=== PATIENT | male | born 1990 | race Caucasian/White ===

== ENCOUNTER 2019-02-23 12:25 | Emergency (ER) | payer MEDICAID ==
[~2019-02-23] VITALS: Ht 172.7 cm; Wt 81.5 kg
[2019-02-23 13:01] VITALS: BP 127/78; PULSE 60; RESP 18; Ht 172.7 cm; Wt 81.5 kg
[2019-02-23] MEDS ORDERED: METH750T93 PO (14:03)
[2019-02-23] MEDS ORDERED: ACET-141 PO (14:03)
[2019-02-23] MEDS ORDERED: IBUP-1542 PO (14:03)
--- NOTE | 2019-02-23 14:09 | ERD ---
ER Documentation Chief Complaint Chief Complaint right lower back pain radiating to right leg HPI 28-year-old male no significant past medical history presents for right lower back pain with radiation to the right leg x4 days. States that he has 7 out of 10 pain. 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 Pain is in the low back noted on the right side. No heavy lifting noted. Patient does not know how his pain was brought on. No prior similar symptoms. Denies any fevers or chills.. Denies chest pain or shortness of breath. No treatment tried at home. No other modifying factors noted. ROS All systems reviewed and are negative except as per history of present illness. Medications Home Meds Active Scripts Methocarbamol* (Robaxin*) 750 Mg Tablet, 750 MG PO TID PRN for MUSCLE SPASMS, #30 TAB Prov:BLANCHE BROWN 02/23/19 Ibuprofen* (Motrin*) 600 Mg Tab, 600 MG PO Q6H PRN for PAIN, #30 TAB Prov:BLANCHE BROWN DO 02/23/19 Acetaminophen* (Acetaminophen*) 500 MG Extra Strength Tablet, 500 MG PO Q4H PRN for PAIN AND OR ELEVATED TEMP, #30 TAB Prov:BLANCHE BROWN 02/23/19 Allergies Allergies: Coded Allergies: No Known Allergy (Unverified , 02/23/19) PMhx/Soc Medical and Surgical Hx: pt denies Medical Hx, pt denies Surgical Hx History of Surgery: No Hx Alcohol Use: No Hx Substance Use: No Hx Tobacco Use: No FmHx Family History: No coronary disease Physical Exam Vitals Vital Signs Date Temp Pulse Resp B/P (MAP) Pulse Ox O2 O2 Flow FiO2 Time Delivery Rate 02/23/19 98.3 60 18 127/78 97 13:01 (94) Physical Exam Const: No acute distress Neck: Full range of motion. No meningismus. no midline tenderness Resp: Clear to auscultation bilaterally Cardio: Regular rate and rhythm, no murmurs, bilateral radial and dorsalis pedis pulses intact and equal Abd: Soft, non tender, non distended. Normal bowel sounds, no abdominal bruit noted Skin: No petechiae or rashes Back: no point tenderness, right paravertebral muscle tenderness palpation of the lumbar spine Ext: No cyanosis, or edema, 5/5 muscle strength bilateral upper and lower extremities Neur: Awake and alert, bilateral upper and lower extremity sensation intact Psych: Normal Mood and Affect Procedures/MDM Medical Decision Making: Differential diagnosis includes but not limited to muscle strain, ligamentous sprain, epidural abscess, osteomyelitis, osteoarthritis, herniated disc, compression fracture, aortic aneurysm, kidney stone, pyelonephritis, pancreatitis. Patient appeared well on physical examination. Nontoxic appearing. Patient appeared well on physical examination. Nontoxic appearing. No recent back procedure, therefore low suspicion for epidural abscess No recent infection, therefore low suspicion for osteomyelitis No trauma, therefore low suspicion for fracture No chest pain, abdominal pain and no pulse deficits noted, therefore low suspicion for aortic dissection or pancreatitis No flank pain or fever to suggest pyelonephritis or kidney stone Patient possibly has muscle strain Patient was neurovascularly intact on physical examination ED course: Prescription(s): Patient given prescription for supportive medication(s). Patient advised to follow up with PCP in 1-2 days. Patient advised to return to ED for new or worsening symptoms. Patient stable on discharge from the ED. Disclaimer: Inadvertent spelling and grammatical errors are likely due to EHR/dictation software use and do not reflect on the overall quality of patient care. Also, please note that the electronic time recorded on this note does not necessarily reflect the actual time of the patient encounter. Departure Diagnosis: Primary Impression: Low back pain Chronicity: unspecified Back pain laterality: unspecified Sciatica presence: with sciatica Sciatica laterality: sciatica of right side Qualified Codes: M54.41 - Lumbago with sciatica, right side Condition: Fair Patient Instructions: Back Care Tips Referrals: [facility] YOU HAVE RECEIVED A MEDICAL SCREENING EXAM AND THE RESULTS INDICATE THAT YOU DO NOT HAVE A CONDITION THAT REQUIRES URGENT TREATMENT IN THE EMERGENCY DEPARTMENT. FURTHER EVALUATION AND TREATMENT OF YOUR CONDITION CAN WAIT UNTIL YOU ARE SEEN IN YOUR DOCTORS OFFICE WITHIN THE NEXT 1-2 DAYS. IT IS YOUR RESPONSIBILITY TO MAKE AN APPOINTMENT FOR FOLOW-UP CARE. IF YOU HAVE A PRIMARY DOCTOR --you should call your primary doctor and schedule an appointment IF YOU DO NOT HAVE A PRIMARY DOCTOR YOU CAN CALL OUR PHYSICIAN REFERRAL HOTLINE AT IF YOU CAN NOT AFFORD TO SEE A PHYSICIAN YOU CAN CHOSE FROM THE FOLLOWING [facility] [address] [facility] [address] [facility] [address] [facility] [address] [facility] [facility] [facility] [address] [facility]. [facility] [address] [facility]. [employer] Additional Instructions: Llame al doctor MAANA y john monico HUBER PARA DENTRO DE 1-2 SORTO.Dgale a la secretaria que nosotros le instruimos hacer esta huber.Avise o llame si londono condicin se empeora antes de la huber. Regresa aqui si peor o no mejor. BLANCHE BROWN DO Feb 23, 2019 14:09
== END 2019-02-23 14:08 | disposition home or self-care (01) ==
LOC: FTE 12:25 → E/R 14:08
DX: M54.41 Lumbago with sciatica, right side (principal)
CPT/HCPCS: 99283